=== PATIENT | female | born 1940 | race Caucasian/White ===

== ENCOUNTER 2022-12-23 12:17 | Outpatient (CLI) | payer MEDICARE, BC ==
[~2022-12-23 12:17] MED LIST: Magnevist 469MG/ML 20 ML VIAL ONE
== END 2022-12-23 12:18 | disposition home or self-care (01) ==
LOC: CSHMRI 12:17
PROVIDERS: ATTEND Internal Medicine
DX: M54.41 Lumbago with sciatica, right side (principal); G89.29 Other chronic pain; M79.604 Pain in right leg; M47.816 Spondylosis without myelopathy or radiculopathy, lumbar region; M43.16 Spondylolisthesis, lumbar region; M48.061 Spinal stenosis, lumbar region without neurogenic claudication
CPT/HCPCS: 72158; 82565; A9579